=== PATIENT | female | born 1980 | race Caucasian/White ===

== ENCOUNTER 2022-07-13 04:48 | Emergency (ER) | payer OTHER ==
[~2022-07-13] VITALS: Ht 149.9 cm; Wt 124.7 kg
[2022-07-13] MEDS ORDERED: ONDANSETRON HCL INJ 2MG/ML 2ML 2 MG/ML VIAL IV STA (05:23)
[2022-07-13] MEDS ORDERED: Morphine 4mg INJECTION 4 MG/ML INJ IV STA (05:23)
[2022-07-13] MEDS ORDERED: SODIUM CHLORIDE 0.9% 1000ML 1,000 ML IV STA (05:23)
[2022-07-13 05:59] LABS: BASOPHILS # (AUTO) 0.1 (0.0-0.1); BASOPHILS % 0.4 % (0.0-1.0); EOSINOPHILS # (AUTO) 0.1 (0.0-0.4); EOSINOPHILS % 1.1 % (0.0-6.0); HEMATOCRIT 41.1 % (34.2-44.1); HEMOGLOBIN 13.8 g/dL (12.0-16.0); LYMPHOCYTES # (AUTO) 1.8 (1.0-3.2); LYMPHOCYTES % 13.4 % (18.0-39.1); MEAN CORPUSCULAR HEMOGLOBIN 27.7 pg (28-32); MEAN CORPUSCULAR HGB CONC 33.6 g/dL (31-35); MEAN CORPUSCULAR VOLUME 82.5 fL (81-99); MONOCYTES # (AUTO) 0.5 (0.2-0.8); MONOCYTES % 3.9 % (4.4-11.3); NEUTROPHILS # (AUTO) 10.6 (2.1-6.9); NEUTROPHILS % 80.6 % (38.7-80.0); PLATELET COUNT 383 x10e3/uL (140-360); RED BLOOD COUNT 4.98 x10e6/uL (3.6-5.1); RED CELL DISTRIBUTION WIDTH 13.5 % (11.7-14.4)
[2022-07-13 06:15] LABS: COLOR,URINE YELLOW (YELLOW)
[2022-07-13 06:16] LABS: ALANINE AMINOTRANSFERASE 18 IU/L (0-55); ALBUMIN 3.5 g/dL (3.5-5.0); ALKALINE PHOSPHATASE 71 IU/L (40-150); ANION GAP 14.2 mmol/L (8-16); BACTERIA,URINE MODERATE /HPF; BLOOD UREA NITROGEN 21 mg/dL (7-26); BUN/CREATININE RATIO 22 (6-25); CALCIUM 8.5 mg/dL (8.4-10.2); CARBON DIOXIDE 24 mmol/L (22-29); CHLORIDE 105 mmol/L (98-107); CLARITY,URINE TURBID (CLEAR); CREATININE, SERUM 0.96 mg/dL (0.57-1.11); EPITHELIAL CELLS,URINE FEW /LPF; GLUCOSE 116 mg/dL (74-118); KETONES,URINE TRACE (NEGATIVE); LEUKOCYTE ESTERASE ,URINE MODERATE (NEGATIVE); NITRITE,URINE NEGATIVE (NEGATIVE); POTASSIUM 3.2 mmol/L (3.5-5.1); PROTEIN,URINE DIPSTICK 1+ (NEGATIVE); RBC,URINE >50 /HPF (0-5); SODIUM 140 mmol/L (136-145); URINE UROBILINOGEN 0.2 mg/dL (0.2 - 1); WBC,URINE (MAN) >50 /HPF (0-5)
[2022-07-13] MEDS ORDERED: IOPAMIDOL 370 MG/ML 100 ML INFUS..BTL INJ ONE (07:13)
[2022-07-13] MEDS ORDERED: HYDROCODON-ACE1 EA11 PO (07:58)
[2022-07-13] MEDS ORDERED: DICYCLOMINE HCL20 MG PO (07:58)
[2022-07-13] MEDS ORDERED: ONDANSETRON ODT4 MG PO (07:58)
[2022-07-13] MEDS ORDERED: METRONIDAZOLE500 MG PO (07:58)
[2022-07-13] MEDS ORDERED: CIPRO500 MG PO (07:58)
== END 2022-07-13 07:51 | disposition home or self-care (01) ==
LOC: ER 04:57
DX: K57.92 Diverticulitis of intestine, part unspecified, without perforation or abscess without bleeding (principal); N39.0 Urinary tract infection, site not specified; I10 Essential (primary) hypertension; Z90.49 Acquired absence of other specified parts of digestive tract
CPT/HCPCS: 36415; 74177; 80053; 81001; 84702; 85025; 87086; 87186; J2270; J2405; J7030; Q9967

== ENCOUNTER 2022-07-31 10:49 | Emergency (ER) | payer OTHER ==
[~2022-07-31] VITALS: Ht 149.9 cm; Wt 124.7 kg
[~2022-07-31 10:49] MED LIST: CIPRO500 MG PO; DICYCLOMINE HCL20 MG PO; HYDROCODON-ACE1 EA11 PO; METRONIDAZOLE500 MG PO; ONDANSETRON ODT4 MG PO
== END 2022-07-31 11:13 | disposition home or self-care (01) ==
LOC: ER 11:11
DX: S61.213A Laceration without foreign body of left middle finger without damage to nail, initial encounter (principal); I10 Essential (primary) hypertension; W26.0XXA Contact with knife, initial encounter; Y93.G3 Activity, cooking and baking; Y99.8 Other external cause status
CPT/HCPCS: 99283